=== PATIENT | female | born 1995 | race African-American/Black ===

== ENCOUNTER 2017-02-01 18:36 | Emergency (ER) | payer OTHER ==
--- NOTE | 2017-02-01 18:44 | PDOC ---
Rapid Medical Evaluation Chief Complaint: Injury Time Seen by Provider: 02/01/17 18:41 Medical Evaluation: Allergies Allergy/AdvReac Type Severity Reaction Status Date / Time Penicillins Allergy Hives Verified 01/29/12 07:12 02/01/17 18:42 RME Note: I have performed a brief, in-person evaluation of this patient . This patient presents with CC: pain right foot post heavy TV fell on same today Pertinent PE findings are: tender to area of dorsum instep I have ordered: U Preg ; foot xray The patient will proceed to ED for further evaluation.
[2017-02-01 18:53] VITALS: BP 149/89; PULSE 93; TEMP 98; BMI 42.9
[2017-02-01] MEDS ORDERED: IBUPROFEN 400 MG TABLET (FP) PO ONE ×2 (19:36→19:44)
--- NOTE | 2017-02-01 19:40 | PDOC ---
History of Present Illness - General Chief Complaint: Injury Stated Complaint: INJURY Time Seen by Provider: 02/01/17 18:41 History Source: Patient - History of Present Illness Occurred: reports: this evening Lower Extremity Pain Location: right: foot Method of Injury: Yes: direct blow Past History - Past Medical History Allergies/Adverse Reactions: Allergies Allergy/AdvReac Type Severity Reaction Status Date / Time Penicillins Allergy Hives Verified 02/01/17 18:42 Home Medications: Ambulatory Orders Albuterol Sulfate Inhaler - [Ventolin HFA Inhaler -] 1 inh IH PRN PRN 01/29/12 Asthma: Yes - Immunization History Immunization Up to Date: Yes - Psycho/Social/Smoking Cessation Hx Suicidal Ideation: No Smoking Status: No Smoking History: Never smoked Number of Cigarettes Smoked Daily: 0 Information on smoking cessation initiated: No Hx Alcohol Use: No Drug/Substance Use Hx: No Substance Use Type: None Review of Systems - Review of Systems Musculoskeletal: Yes: Joint Pain. No: Joint Swelling *Physical Exam - Vital Signs Last Vital Signs Temp Pulse Resp BP Pulse Ox 98 F 93 H 17 149/89 100 02/01/17 18:40 02/01/17 18:40 02/01/17 18:40 02/01/17 18:40 02/01/17 18:40 - Physical Exam General Appearance: Yes: Appropriately Dressed. No: Apparent Distress HEENT: positive: Normal Voice Neck: positive: Supple Respiratory/Chest: negative: Respiratory Distress Extremity: positive: Tender (to plantar aspect of R 1st MCP, no swelling, deformity or break in skin) Integumentary: positive: Dry, Warm Neurologic: positive: Fully Oriented, Alert, Normal Mood/Affect ED Treatment Course - ADDITIONAL ORDERS Additional order review: Laboratory Results 02/01/17 19:00 Urine HCG, Qual Negative Medical Decision Making - Medical Decision Making 02/01/17 19:36 21-year-old female, no significant history, here with right foot pain after a TV fell onto foot today. Is able to bear weight, but painful per patient. Exam only remarkable for positive tenderness to plantar aspect of right first MCP. No swelling, deformity or break in skin. X-ray negative for fracture. DC with pain control and crutches. *DC/Admit/Observation/Transfer Diagnosis at time of Disposition: Foot sprain Qualifiers: Encounter type: initial encounter Laterality: right Qualified Code(s): S93.601A - Unspecified sprain of right foot, initial encounter - Discharge Dispostion Disposition: HOME Condition at time of disposition: Good - Patient Instructions Printed Discharge Instructions: DI for Foot Sprain Additional Instructions: Take Motrin [id number] as needed for pain
[2017-02-01] MEDS ORDERED: IBUPROFEN 100 MG/5 ML UNIT DOSE CUPS ONE (19:43)
== END 2017-02-01 19:54 | disposition home or self-care (01) ==
LOC: JERFT 18:36
DX: S93.691A Other sprain of right foot, initial encounter (principal); W20.8XXA Other cause of strike by thrown, projected or falling object, initial encounter; Y93.89 Activity, other specified; Y92.038 Other place in apartment as the place of occurrence of the external cause
CPT/HCPCS: 73630-TC-RT; 84703; 99281-25

== ENCOUNTER 2017-12-22 23:14 | Emergency (ER) | payer BC, OTHER ==
[2017-12-22 23:23] VITALS: BP 132/71; PULSE 125; TEMP 100; BMI 36.8
[2017-12-23] MEDS ORDERED: LACTATED RINGERS SOLUTION 1000 ML INFUS.BAG IV ONE (00:49)
[2017-12-23] MEDS ORDERED: ACETAMINOPHEN 1000 MG/100 ML VIAL (NON FORMULARY) IVPB ONE (00:50)
--- NOTE | 2017-12-23 00:51 | PDOC ---
History of Present Illness - General History Source: Patient Exam Limitations: No Limitations - History of Present Illness Initial Comments: 12/23/17 01:26 The patient is a 22 year old female with a significant past medical history of asthma and migraines who presents to the ED with 3 days of cold like symptoms. The patient reports a subjective fever, nonproductive cough, chest tightness, and shortness of breath that started 3 days ago. Patient states she tested positive for the flu yesterday and was given Tamiflu and motrin by her PCP. Patient notes her symptoms worsened and her PCP prescribed her azithromycin and steroids. She states she took one dose of Tamiflu and stopped taking because it was not working. Pt reports chest tightness and SOB feel like her asthma. She tried her albuterol pump with minimal relief. Patient comes into the ED tonight for presistent symptoms. Denies pleuritic CP, nausea, vomiting, or diarrhea. Denies any weakness/numbness. Denies abd pain, LE edema, calf pain. Denies recent travel or immobility. Not on OCPs. Allergies: Penicillin <Nika Carreno - Last Filed: 12/23/17 01:25> <Maxi Yeung - Last Filed: 12/23/17 02:33> <Karen Quintanilla - Last Filed: 12/23/17 03:55> - General Chief Complaint: Respiratory Stated Complaint: PCP SENT Time Seen by Provider: 12/23/17 00:38 Past History <Nika Carreno - Last Filed: 12/23/17 01:25> - Past Medical History Asthma: Yes - Immunization History Immunization Up to Date: Yes - Suicide/Smoking/Psychosocial Hx Smoking Status: No Smoking History: Never smoked Number of Cigarettes Smoked Daily: 0 Hx Alcohol Use: No Drug/Substance Use Hx: No Substance Use Type: None <Maxi Yeung - Last Filed: 12/23/17 02:33> <Karen Quintanilla - Last Filed: 12/23/17 03:55> - Past Medical History Allergies/Adverse Reactions: Allergies Allergy/AdvReac Type Severity Reaction Status Date / Time Penicillins Allergy Hives Verified 12/22/17 23:21 Home Medications: Ambulatory Orders Albuterol Sulfate Inhaler - [Ventolin HFA Inhaler -] 1 inh IH PRN PRN 01/29/12 Review of Systems - Review of Systems Able to Perform ROS?: Yes Comments:: 12/23/17 01:26 GENERAL/CONSTITUTIONAL: + fever HEAD, EYES, EARS, NOSE AND THROAT: No change in vision. No ear pain or discharge. No sore throat. GASTROINTESTINAL: No nausea, vomiting, diarrhea or constipation. GENITOURINARY: No dysuria, frequency, or change in urination. CARDIOVASCULAR: + chest discomfort RESPIRATORY: + cough, shortness of breath. No wheezing, or hemoptysis. MUSCULOSKELETAL: No joint or muscle swelling or pain. No neck or back pain. SKIN: No rash NEUROLOGIC: No headache, vertigo, loss of consciousness, or change in strength/ sensation. ENDOCRINE: No increased thirst. No abnormal weight change. HEMATOLOGIC/LYMPHATIC: No anemia, easy bleeding, or history of blood clots. ALLERGIC/IMMUNOLOGIC: No hives or skin allergy. All Other Systems: Reviewed and Negative <Nika Carreno - Last Filed: 12/23/17 01:25> *Physical Exam - Vital Signs Last Vital Signs Temp Pulse Resp BP Pulse Ox 100 F H 125 H 22 132/71 99 12/22/17 23:21 12/22/17 23:21 12/22/17 23:21 12/22/17 23:21 12/22/17 23:21 - Physical Exam Comments: 12/23/17 01:26 GENERAL: Awake, alert, and fully oriented, in no acute distress HEAD: No signs of trauma EYES: PERRLA, EOMI, sclera anicteric, conjunctiva clear ENT: Auricles normal inspection, hearing grossly normal, nares patent, oropharynx clear without exudates. Moist mucosa NECK: Normal ROM, supple, no lymphadenopathy, JVD, or masses LUNGS: Breath sounds equal, clear to auscultation bilaterally. No wheezes, and no crackles HEART: + tachycardic at 115, Regular rhythm, normal S1 and S2, no murmurs, rubs or gallops ABDOMEN: Soft, nontender, normoactive bowel sounds. No guarding, no rebound. No masses EXTREMITIES: Normal range of motion, no edema. No clubbing or cyanosis. No cords , erythema, or tenderness BACK: No midline spinal tenderness in cervical/thoracic/lumbar region NEUROLOGICAL: Normal speech, cranial nerves intact, negative pronator drift, 5/ 5 strength in all 4 extremities, normal sensation to light touch in all 4 extremities, normal cerebellar exam, normal gait, normal reflexes and tone SKIN: Warm, Dry, normal turgor, no rashes or lesions noted. <Nika Carreno - Last Filed: 12/23/17 01:25> - Vital Signs Last Vital Signs Temp Pulse Resp BP Pulse Ox 100 F H 125 H 22 132/71 99 12/22/17 23:21 12/22/17 23:21 12/22/17 23:21 12/22/17 23:21 12/22/17 23:21 <Maxi Yeung - Last Filed: 12/23/17 02:33> - Vital Signs Last Vital Signs Temp Pulse Resp BP Pulse Ox 100 F H 125 H 22 132/71 99 12/22/17 23:21 12/22/17 23:21 12/22/17 23:21 12/22/17 23:21 12/22/17 23:21 <Karen Quintanilla - Last Filed: 12/23/17 03:55> ED Treatment Course - LABORATORY CBC & Chemistry Diagram: 12/23/17 00:49 12/23/17 01:09 - ADDITIONAL ORDERS Additional order review: Laboratory Results 12/23/17 00:50 Urine HCG, Qual Negative 12/23/17 00:49 RBC 4.79 MCV 82.1 MCHC 32.9 RDW 14.8 MPV 8.5 Neutrophils % 51.7 Lymphocytes % 34.1 Monocytes % 10.2 Eosinophils % 3.3 Basophils % 0.7 - Medications Given in the ED: ED Medications Discontinued Medications Generic Name Dose Route Start Last Admin Trade Name Minq PRN Reason Stop Dose Admin Acetaminophen 1,000 mg 12/23/17 00:50 12/23/17 01:20 Ofirmev Injection - IVPB 12/23/17 00:51 1,000 mg ONCE ONE Administration Lactated Ringer's 1,000 ml 12/23/17 00:49 12/23/17 01:20 Lactated Ringers Solution IV 12/23/17 00:50 1,000 ml ONCE ONE Administration <Nika Carreno - Last Filed: 12/23/17 01:25> - LABORATORY CBC & Chemistry Diagram: 12/23/17 00:49 12/23/17 01:09 <Maxi Yeung - Last Filed: 12/23/17 02:33> - LABORATORY CBC & Chemistry Diagram: 12/23/17 00:49 12/23/17 01:09 - ADDITIONAL ORDERS Additional order review: Laboratory Results 12/23/17 12/23/17 01:09 00:50 Sodium 140 Potassium 3.8 Chloride 105 Carbon Dioxide 24 Anion Gap 11 BUN 7 Creatinine 1.0 Creat Clearance w eGFR > 60 Random Glucose 96 Calcium 9.0 Total Bilirubin 0.5 AST 19 ALT 30 Alkaline Phosphatase 79 Total Protein 8.3 H Albumin 4.3 Urine HCG, Qual Negative 12/23/17 00:49 RBC 4.79 MCV 82.1 MCHC 32.9 RDW 14.8 MPV 8.5 Neutrophils % 51.7 Lymphocytes % 34.1 Monocytes % 10.2 Eosinophils % 3.3 Basophils % 0.7 - Medications Given in the ED: ED Medications Discontinued Medications Generic Name Dose Route Start Last Admin Trade Name Minq PRN Reason Stop Dose Admin Acetaminophen 1,000 mg 12/23/17 00:50 12/23/17 01:20 Ofirmev Injection - IVPB 12/23/17 00:51 1,000 mg ONCE ONE Administration Albuterol/Ipratropium 1 amp 12/23/17 01:00 12/23/17 01:52 Duoneb - NEB 12/23/17 01:46 1 amp Q15M JOSE Administration Lactated Ringer's 1,000 ml 12/23/17 00:49 12/23/17 01:20 Lactated Ringers Solution IV 12/23/17 00:50 1,000 ml ONCE ONE Administration <Karen Quintanilla - Last Filed: 12/23/17 03:55> Medical Decision Making - Medical Decision Making 12/23/17 01:19 22-year-old female with a history of asthma, migraines presents with persistent fevers, shortness of breath, chest tightness, cough in the setting of a positive flu test at her primary doctor's office. Patient has been prescribed Tamiflu, azithromycin, and steroids by her primary doctor but presented today due to persistent symptoms. Vitals today are remarkable for tachycardia to 125 on arrival, but heart rate down to 104 on my exam.Temperature mildly elevated to 100. Exam is unremarkable with clear lungs. We will obtain basic labs, chest x-ray and treat with nebs and fluids and reassess. 12/23/17 02:33 Labs wnl. XR pending. Pt signed out to Dr. Quintanilla for further mgmt/dispo. <Maxi Yeung - Last Filed: 12/23/17 02:33> *DC/Admit/Observation/Transfer - Attestations Scribe Attestion: 12/23/17 01:26 Documentation prepared by Nika Carreno, acting as clinical laboratory medical director for Maxi Yeung MD <Nika Carreno - Last Filed: 12/23/17 01:25> <Maxi Yeung - Last Filed: 12/23/17 02:33> - Discharge Dispostion Admit: No <Karen Quintanilla - Last Filed: 12/23/17 03:55> Diagnosis at time of Disposition: Influenza - Discharge Dispostion Disposition: HOME Condition at time of disposition: Stable - Referrals Referrals: Alka Fu [Primary Care Provider] - - Patient Instructions Printed Discharge Instructions: DI for Influenza -- Adult Additional Instructions: Continue to take the tamiflu, azithromycin, and steroids as prescribed by your primary doctor. Follow up with your primary doctor on Sunday12/24/17. Drink plenty of fluids to stay hydrated. Use a humidifier to help with your cough. Return to the emergency room if you have any new, worsening, or concerning symptoms. - Post Discharge Activity
[2017-12-23] MEDS ORDERED: ALBUTEROL SO4 2.5/IPRATROPIUM 0.5 INH SOL 3 ML VIAL.NEB. NEB ONE (01:00)
[2017-12-23] MEDS ORDERED: ACETAMINOPHEN INJECTION 100 ML IVPB ONE (01:00)
[2017-12-23] MEDS: ALBUTEROL SO4 2.5/IPRATROPIUM 0.5 INH SOL 3 ML VIAL.NEB. NEB SCH ×4 (01:00→01:52)
[2017-12-23 01:16] LABS: BASO % 0.7 % (0-2.0); EOS % 3.3 % (0-4.5); HEMATOCRIT 39.4 % (32.4-45.2); LYMPH % 34.1 % (8-40); MCHC 32.9 g/dl (32.0-36.0); MEAN CELL VOLUME 82.1 fl (80-96); MEAN PLT VOLUME 8.5 fl (7.5-11.1); MONO % 10.2 % (3.8-10.2); NEUT % 51.7 % (42.8-82.8); PLATELET COUNT 314 K/MM3 (134-434); RBC 4.79 M/mm3 (3.60-5.2); RDW 14.8 % (11.6-15.6); WHITE BLOOD COUNT 10.3 K/mm3 (4.0-10.0)
[2017-12-23 01:58] LABS: ALBUMIN 4.3 g/dl (3.4-5.0); ALK PHOS 79 U/L (45-117); ANION GAP 11 (8-16); BILIRUBIN,TOTAL 0.5 mg/dL (0.2-1.0); BLOOD UREA NITROGEN 7 mg/dL (7-18); CHLORIDE 105 mmol/L (98-107); CO2 24 mmol/L (21-32); GLUCOSE,RANDOM 96 mg/dL (74-106); POTASSIUM 3.8 mmol/L (3.5-5.1); SGOT/AST 19 U/L (15-37); SGPT/ALT 30 U/L (12-78); SODIUM 140 mmol/L (136-145); TOT PROT 8.3 g/dl (6.4-8.2)
== END 2017-12-23 04:05 | disposition home or self-care (01) ==
LOC: JER 23:14
PROC: 3E0F7GC Introduction of Other Therapeutic Substance into Respiratory Tract, Via Natural or Artificial Opening (ICD-10-PCS; principal; 2017-12-22)
PROC: 3E0F7GC Introduction of Other Therapeutic Substance into Respiratory Tract, Via Natural or Artificial Opening (ICD-10-PCS; 2017-12-22)
PROC: 3E0F7GC Introduction of Other Therapeutic Substance into Respiratory Tract, Via Natural or Artificial Opening (ICD-10-PCS; 2017-12-22)
PROC: 3E0F7GC Introduction of Other Therapeutic Substance into Respiratory Tract, Via Natural or Artificial Opening (ICD-10-PCS; 2017-12-22)
PROC: 3E033NZ Introduction of Analgesics, Hypnotics, Sedatives into Peripheral Vein, Percutaneous Approach (ICD-10-PCS; 2017-12-22)
DX: J10.1 Influenza due to other identified influenza virus with other respiratory manifestations (principal); J45.909 Unspecified asthma, uncomplicated; G43.909 Migraine, unspecified, not intractable, without status migrainosus
CPT/HCPCS: 36415; 71046-TC-FY; 80053; 84703; 85025; 99282-25

== ENCOUNTER 2022-06-09 09:55 | Emergency (ER) | payer BC ==
[2022-06-09 10:12] VITALS: BP 114/74; PULSE 71; TEMP 98.1; BMI 33.7
[2022-06-09] MEDS ORDERED: SODIUM CHLORIDE 1,000 ML IV STA (10:22)
[2022-06-09] MEDS ORDERED: ACETAMINOPHEN 1000 MG/100 ML BAG IVPB ONE (10:31)
[2022-06-09] MEDS ORDERED: ACETAMINOPHEN INJECTION 100 ML IVPB ONE (10:49)
[2022-06-09 11:05] LABS: BASO % 1.1 % (0-2.0); EOS % 1.5 % (0-4.5); HEMATOCRIT 38.3 % (32.4-45.2); HEMOGLOBIN 12.7 GM/dL (10.7-15.3); LYMPH % 38.9 % (8-40); MCH 25.7 pg (25.7-33.7); MEAN CELL VOLUME 77.9 fl (80-96); MEAN PLT VOLUME 8.7 fl (7.5-11.1); MONO % 5.8 % (3.8-10.2); NEUT % 52.7 % (42.8-82.8); PLATELET COUNT 427 10^3/uL (134-434); RBC 4.93 M/mm3 (3.60-5.2); RDW 16.5 % (11.6-15.6); WHITE BLOOD COUNT 10.2 K/mm3 (4.0-10.0)
[2022-06-09 11:40] LABS: CALCIUM 9.6 mg/dL (8.5-10.1)
[2022-06-09 11:41] LABS: ALBUMIN 4.3 g/dl (3.4-5.0); BLOOD UREA NITROGEN 9.6 mg/dL (7-18)
[2022-06-09 11:44] LABS: CREATININE 0.9 mg/dL (0.55-1.3)
[2022-06-09 11:45] LABS: BILIRUBIN,TOTAL 0.6 mg/dL (0.2-1); TOT PROT 8.2 g/dl (6.4-8.2)
[2022-06-09 11:59] LABS: EPI CELLS >36 /uL (0-25.1); HCG,QUALITATIVE URINE Negative; HYALINE CASTS 4 /uL (0-3.1); URINE APPEARANCE CLEAR; URINE BACTERIA 502 /uL (0-1359); URINE BILIRUBIN NEGATIVE (NEGATIVE); URINE COLOR YELLOW; URINE GLUCOSE (UA) NEGATIVE (NEGATIVE); URINE KETONE NEGATIVE (NEGATIVE); URINE LEUK ESTERASE 1+ (NEGATIVE); URINE NITRITE NEGATIVE (NEGATIVE); URINE PROTEIN NEGATIVE (NEGATIVE); URINE RBC 5 /uL (0-23.9); URINE UROBILINOGEN 0.2 mg/dL (0.2-1.0); URINE WBC 58 /uL (0-25.8)
[2022-06-09] MEDS ORDERED: KETOROLAC TROMETHAMINE 30 MG/1 ML VIAL IVPUSH ONE (13:57)
[2022-06-09] MEDS ORDERED: KETOROLAC TROMETHAMINE 30 MG/1 ML VIAL ONE (13:58)
== END 2022-06-09 14:58 | disposition home or self-care (01) ==
LOC: JER 09:55
PROC: 3E0333Z Introduction of Anti-inflammatory into Peripheral Vein, Percutaneous Approach (ICD-10-PCS; principal; 2022-06-09)
PROC: 3E0333Z Introduction of Anti-inflammatory into Peripheral Vein, Percutaneous Approach (ICD-10-PCS; 2022-06-09)
PROC: 3E0337Z Introduction of Electrolytic and Water Balance Substance into Peripheral Vein, Percutaneous Approach (ICD-10-PCS; 2022-06-09)
DX: R10.32 Left lower quadrant pain (principal)
CPT/HCPCS: 36415; 71046-TC-FY; 74176-TC; 80053; 81003; 83690; 84703; 85025; 87086; 99285-25

== ENCOUNTER 2022-10-12 17:53 | Emergency (ER) | payer BC ==
[2022-10-12 18:08] VITALS: BP 125/84; PULSE 101; RESP 18; TEMP 98.4; BMI 30.8
[2022-10-12 19:27] LABS: HCG,QUALITATIVE URINE Negative
[2022-10-12 19:39] LABS: ALBUMIN 4.4 g/dl (3.4-5.0); BLOOD UREA NITROGEN 7.1 mg/dL (7-18); CALCIUM 9.9 mg/dL (8.5-10.1); EPI CELLS >36 /uL (0-25.1); HYALINE CASTS 11 /uL (0-3.1); PH,URINE 5.5 (5.0-8.0); URINE APPEARANCE CLOUDY; URINE BACTERIA 1383 /uL (0-1359); URINE BILIRUBIN NEGATIVE (NEGATIVE); URINE COLOR YELLOW; URINE GLUCOSE (UA) NEGATIVE (NEGATIVE); URINE KETONE 4+ (NEGATIVE); URINE LEUK ESTERASE 3+ (NEGATIVE); URINE NITRITE NEGATIVE (NEGATIVE); URINE PROTEIN 1+ (NEGATIVE); URINE RBC 7 /uL (0-23.9); URINE WBC 318 /uL (0-25.8)
[2022-10-12 19:42] LABS: BASO % 0.9 % (0-2.0); EOS % 0.6 % (0-4.5); HEMATOCRIT 34.6 % (32.4-45.2); LYMPH % 32.7 % (8-40); MCH 24.4 pg (25.7-33.7); MEAN CELL VOLUME 76.3 fl (80-96); MEAN PLT VOLUME 8.4 fl (7.5-11.1); MONO % 9.3 % (3.8-10.2); NEUT % 56.5 % (42.8-82.8); PLATELET COUNT 381 10^3/uL (134-434); RBC 4.53 M/mm3 (3.60-5.2); RDW 16.4 % (11.6-15.6); WHITE BLOOD COUNT 13.5 K/mm3 (4.0-10.0)
[2022-10-12 19:44] LABS: BILIRUBIN,TOTAL 0.9 mg/dL (0.2-1)
[2022-10-12] MEDS ORDERED: ACETAMINOPHEN 1000 MG/100 ML BAG IVPB ONE ×2 (20:15→20:36)
[2022-10-12] MEDS ORDERED: ACETAMINOPHEN INJECTION 100 ML IVPB ONE (20:20)
[2022-10-12] MEDS ORDERED: SULFAMETHOXAZOLE/TRIMETHOPRIM 800MG/160MG D.S. TABLET PO ONE (20:31)
[2022-10-12] MEDS ORDERED: ACETAMINOPHEN 325 MG TABLET (FP) PO ONE (20:32)
[2022-10-12] MEDS ORDERED: SULFAMETHOXAZOLE/TRIMETHOPRIM 800MG/160MG D.S. TABLET ONE (20:43)
== END 2022-10-12 20:59 | disposition home or self-care (01) ==
LOC: JER 17:53
PROC: 3E033NZ Introduction of Analgesics, Hypnotics, Sedatives into Peripheral Vein, Percutaneous Approach (ICD-10-PCS; principal; 2022-10-12)
DX: R10.84 Generalized abdominal pain (principal)
CPT/HCPCS: 36415; 71046-TC-FY; 80053; 81003; 83690; 84703; 85025; 86140; 87086; 87491; 87591; 93005; 93010; 99284-25